=== PATIENT | female | born 1945 | race Caucasian/White ===

== ENCOUNTER → 2023-06-07 10:18 | Outpatient (REF) | payer MEDICARE, OTHER, SELFPAY ==
[2023-06-07 11:06] VITALS: BP 154/76; BP_SYST 84
== END ==
LOC: RADI 10:18
PROVIDERS: ATTENDING PHYSICIAN Surgery; FAMILY PHYSICIAN Nurse Practitioner
DX: Z46.2 Encounter for fitting and adjustment of other devices related to nervous system and special senses (principal); K57.20 Diverticulitis of large intestine with perforation and abscess without bleeding
CPT/HCPCS: 49424; 76080

== ENCOUNTER → 2023-07-24 13:33 | Outpatient (REF) | payer MEDICARE, OTHER, SELFPAY | LOC: HWWDC 13:33 | PROVIDERS: ATTENDING PHYSICIAN Nurse Practitioner | DX: Z12.31 Encounter for screening mammogram for malignant neoplasm of breast (principal) | CPT/HCPCS: 77063; 77067 ==

== ENCOUNTER → 2023-08-06 10:10 | Outpatient (REF) | payer MEDICARE, OTHER, SELFPAY | LOC: WDC 10:10 | PROVIDERS: ATTENDING PHYSICIAN Nurse Practitioner | DX: R92.8 Other abnormal and inconclusive findings on diagnostic imaging of breast (principal) | CPT/HCPCS: 77065 ==

== ENCOUNTER → 2023-08-16 06:30 | Outpatient (REF) | payer MEDICARE, OTHER, SELFPAY ==
--- NOTE | 2023-08-16 09:28 | OID.BR.INTR ---
[facility]igator - Initial
- -
Date of Contact: 08/16/23
Met with patient. Patient given written information on navigator services available at [facility]. Will follow up as needed per protocol.
== END ==
LOC: WDC 06:30
PROVIDERS: ATTENDING PHYSICIAN Nurse Practitioner
DX: R92.1 Mammographic calcification found on diagnostic imaging of breast (principal); R92.8 Other abnormal and inconclusive findings on diagnostic imaging of breast
CPT/HCPCS: 88305; 19081; 76098; A4648

== ENCOUNTER → 2023-08-16 13:54 | Outpatient (REF) | payer OTHER, SELFPAY ==
[2023-08-16 15:35] LABS: HIV Combo Negative (Negative)
[2023-08-16 16:01] LABS: Hepatitis B Surface Antigen Negative (Negative)
[2023-08-16 16:19] LABS: Hepatitis C Antibody Negative (Negative)
== END ==
LOC: OHS 13:54
PROVIDERS: ATTENDING PHYSICIAN Nurse Practitioner Family
DX: Z57.8 Occupational exposure to other risk factors (principal)
CPT/HCPCS: 36415; 86803; 87340; 87389

== ENCOUNTER → 2023-10-08 14:17 | Outpatient (REF) | payer MEDICARE, OTHER, SELFPAY | LOC: HWRAD 14:17 | PROVIDERS: ATTENDING PHYSICIAN Nurse Practitioner | DX: J40 Bronchitis, not specified as acute or chronic (principal) | CPT/HCPCS: 71046 ==

== ENCOUNTER 2023-12-18 17:30 | Inpatient (IN) | payer MEDICARE, OTHER, SELFPAY ==
[2023-12-18] VITALS (8 sets, daily range): BP systolic 110–148; BP diastolic 50–88; BMI 28.5; BMI 28.6
[2023-12-18 12:49] LABS: % Basophils 0.7 % (0-2); % Eosinophils 0.5 % (0-6); % Immature Granulocytes 0.4 % (0-0.5); % Lymphocytes 10.6 % (20.5-51.1); % Monocytes 13.4 % (1.7-9.3); % Neutrophils 74.4 % (42.2-75.2); Absolute Basophils 0.1 10^3/uL (0-0.2); Absolute Eosinophils 0.1 10^3/uL (0-0.7); Absolute Immature Granulocytes 0.1 10^3/uL (0-0.05); Absolute Lymphocytes 1.4 10^3/uL (1.2-3.4); Absolute Monocytes 1.8 10^3/uL (0.1-0.6); Absolute Neutrophils 9.9 10^3/uL (1.4-6.5); Hematocrit 41.4 % (37.0-47.0); Hemoglobin 14.3 g/dL (12.0-16.0); Mean Corp Hgb Conc. 34.5 g/dL (33.0-37.0); Mean Corpuscular Hgb 27.3 pg (27.0-31.0); Mean Corpuscular Volume 79.2 fL (81.0-99.0); Mean Platelet Volume 9.6 fL (7.4-10.4); Nucleated Red Blood Cells % 0 %; Platelet Count 399 10^3/uL (130-400); Red Blood Cell Count 5.23 10^6/uL (4.20-5.40); Red Cell Dist. Width 14.1 % (11.5-14.5); White Blood Cell Count 13.4 10^3/uL (4.8-10.8)
[2023-12-18 13:07] LABS: ALT (SGPT) 13 U/L (0-35); AST (SGOT) 21 U/L (14-36); Albumin 3.9 g/dl (3.5-5.0); Alkaline Phosphatase 102 U/L (38-126); Blood Urea Nitrogen 18 mg/dl (7-17); Calcium 10.3 mg/dl (8.4-10.2); Carbon Dioxide 24 mmol/L (22-30); Chloride 105 mmol/L (98-107); Glucose 130 mg/dl (70-99); Sodium 137 mmol/L (135-145); Total Bilirubin 0.8 mg/dl (0.2-1.3); Total Protein 6.6 g/dl (6.3-8.2); eGFR 57.31
[2023-12-18] MEDS: NSS 1000 IV ×2 (15:14→20:45)
--- NOTE | 2023-12-18 15:14 | ED.GENMED ---
History of Present Illness
General
Chief Complaint: Abdominal Symptoms
Source: patient and records
Exam Limitations: none
Time Seen by Provider: 12/18/23 14:27
Nursing documentation reviewed up to this point in time: agreed with
History of Present Illness
History of Present Illness:
Patient is a 78-year-old female Who presents to the emergency department complaining of severe lower abdominal pain that started 4 days ago. Back in May patient had sigmoid diverticulitis with large pelvic abscess. Approximately 10 days ago
the patient had some diarrhea and schedule an appointment with her physician who saw her 5 days ago and then the next day the patient started with pain. Patient talked to her doctor and took Augmentin starting 2 days ago. Patient also had been
constipated since having diarrhea earlier. Patient did take a Dulcolax and 2 nights ago had a normal bowel movement. Last night the pain increased and this morning the patient had 2 bowel movements that were soft but had bright red blood. Patient
then had liquidy stools. Patient's had a low-grade temp of 99.5 for the last week but today it was 100.4. During the night the patient had dry heaves and was retching. Patient denies chest pain, shortness of breath or palpitations. Patient
denies any symptoms. Patient admits to decreased appetite.
Past History
Past History
ED Past Medical History: GERD, HTN, Hypothyroidism and Other (PNA, Aortic stenosis, Hiatal hernia)
ED Past Surgical History: Gynecological (Hysterectomy), Orthopedic (left hip replacement, right rotator cuff repair, left hammer toe ), Tonsilectomy and Other (cataracts)
Social History
Tobacco: Former smoker
Alcohol: None
Drug: None
Personal:
Living: alone
Family History
Family History: Negative Hypertension or CAD
Review of Systems
Review of Systems
All Other Systems: ROS reviewed and negative except as documented in HPI and ROS
Constitutional: Reports fever and fatigue
EENT: Reports no symptoms
Respiratory: Reports no symptoms
Cardiac: Reports no symptoms
ABD/GI: Reports abdominal pain, diarrhea, bloody stools, anorexia and other (dry heaves)
: Reports no symptoms
Musculoskeletal: Reports no symptoms
Skin: Reports no symptoms
Neurological: Reports no symptoms
Hematologic/Lymphatic: Reports no symptoms
Phy Exam
Physical Exam
Physical Exam:
Physical Exam
General: mild to moderate distress, alert and appropriate, well nourished, dry mucous membranes
HENT: Normocephalic, supple with no lymphadenopathy, no thyromegaly
Eyes: Clear sclera, conjuctiva without injection
Heart: Regular rhythm and rate. No S3, S4. Grade 2/6 holosystolic murmur heard best at the base. No NVD
Lungs: No respiratory distress, no stridor, lung sounds clear and equal bilaterally
Abdomen: Soft, moderate diffuse lower abdominal tenderness greatest in the suprapubic and left lower quadrant regions with mild guarding but no rebound, no organomegaly, no CVA tenderness, BS good
Neuro: Alert and oriented x 3, CN II - XII intact, no motor focality, no cerebellar dysfunction
Skin: no rash
Psychiatric: well kept. interactive and cooperative
Extremities: No edema, cyanosis, tenderness, Good and equal peripheral pulses.
Course
Orders/Labs/Results
Orders:
Orders
12/18/23 12:31
EKG [Electrocardiogram (*1)] Urgent
Reason for Study: Tachycardia
12/18/23 12:32
EKG- Treatment ONCE
12/18/23 12:36
Complete Blood Count/With Diff Urgent
Comprehensive Metabolic Panel Urgent
12/18/23 14:41
CT Abd/Pel (IV only)-DH only Urgent
Comment:
Reason For Exam: ;ower gi bleed and lower tender
0.9% Sodium Chloride 1000 ml [Nss] 1,000 ml IV BOLUS
Ondansetron Injectable [Zofran] 4 mg IV NOW STA
12/18/23 Dinner
Clear Liquid
At Your Request: Full Participation
Does patient need a safe tray?: No
12/18/23 16:19
LevoFLOXacin 500 MG/100 ML [Levaquin] 500 mg in 100 ml IV NOW
MetroNIDAZOLE 500 MG/100 ML [Flagyl 500 mg] 100 ml IV NOW
12/18/23 17:23
Admit/Transfer Patient As Directed
Co-Sign Provider:
Level of Care: Inpatient admission
Assign to:: Medical/Surgical
Physician / Group: gautam
Diagnosis: diverticulitis
Reason for Hospitalization: diverticulitis
Expected length of stay greater than two midnights?: Yes
ELOS- Estimated Length of Stay in days: 2
I certify the patient meets the requirements for IP care: Yes
PRN Pain Medication Management As Directed
May give lesser potent ordered pain med per pt: Yes
preference::
Protocol:: Medication orders for pain may be administered in a
manner that supports deferring to patient preference
when the pt is:
- Requesting an ordered lesser potent pain medication.
Least to most potent pain medications are defined
as: acetaminophen < NSAID < tramadol < opioids
(morphine, oxycodone, hydromorphone).
- Requesting a lesser dose of the same medication IF
ORDERED.
- Requesting a less intrusive route of administration
if both routes are prescribed by the provider (PO <
IV).
12/18/23 17:24
Code Status As Directed
Resuscitation Status: Full Code
12/18/23 19:11
Acetaminophen [Tylenol] 650 mg PO Q4HPRN PRN
Albuterol [ProAIR HFA INHALER] 2 puff INH R Q6HPRN PRN
HYDROmorphone [Dilaudid] 0.5 mg IV Q4HPRN PRN
Ondansetron Injectable [Zofran] 4 mg IV Q6HPRN PRN
12/18/23 19:11
Activity As Directed
Activity Level: As Tolerated
Pneumatic Compression Sleeves As Directed
Type: Knee high
Vital Signs As Directed
Frequency: Per unit guidelines
DX Deep Vein Thrombosis Video Routine
12/18/23 19:30
0.9% Sodium Chloride 1000 ml [Nss] 1,000 ml IV 80 mls/hr
12/18/23 20:00
Piperacillin/Tazo 3.375 Gram [Zosyn] 3.375 gram in 50 ml IV Q6H
12/19/23 06:00
Complete Blood Count/With Diff IN AM
Comprehensive Metabolic Panel IN AM
Levothyroxine [Synthroid] 100 mcg PO DAILY@0600
12/19/23 08:00
calcium citrate-vitamin D3 2 tablet PO DAILY
12/19/23 11:00
Pantoprazole [Protonix] 20 mg PO DAILY@1100
12/19/23 12:00
Metoprolol Xl [Toprol Xl] 25 mg PO NOON
wgqwesaa-gpxjtja-btfn-lutein 1 tablet PO NOON
Abnormal Lab Results
12/18/23
12:36
WBC 13.4 H 10^3/uL
(4.8-10.8)
MCV 79.2 L fL
(81.0-99.0)
Abs Immat Gran (auto) 0.1 H 10^3/uL
(0-0.05)
Absolute Neuts (auto) 9.9 H 10^3/uL
(1.4-6.5)
Absolute Monos (auto) 1.8 H 10^3/uL
(0.1-0.6)
Lymphocytes % 10.6 L %
(20.5-51.1)
Monocytes % 13.4 H %
(1.7-9.3)
BUN 18 H mg/dl
(7-17)
Glucose 130 H mg/dl
(70-99)
Calcium 10.3 H mg/dl
(8.4-10.2)
12/18/23 12:36
12/18/23 12:36
Vital Signs
Initial and Last Documented VS:
Initial Vital Signs
Temp Pulse Resp BP Pulse Ox
99.4 F 117 18 110/88 94
12/18/23 12:26 12/18/23 12:26 12/18/23 12:26 12/18/23 12:26 12/18/23 12:26
Last Documented Vital Signs
Temp Pulse Resp BP Pulse Ox
98.0 F 107 18 148/76 94
12/18/23 19:10 12/18/23 19:10 12/18/23 19:10 12/18/23 19:10 12/18/23 19:10
*Radiology
Radiology exam reviewed: radiology read reviewed (Diverticulitis)
*EKG
Interpreted by ED Provider?: Yes
EKG Intrepretation Date: 12/18/23
EKG Intrepretation Time: 15:32
Interpretation: abnormal
Comparison EKG: no changes
Heart Rate: 110
Rate: tachycardiac
Rhythm: sinus
[place]: normal axis
Interval: normal interval
QRS Pattern: normal QRS
Ischemia: no ischemia
*Cook Chief Interpretation
Rate: tachycardiac
Interpretation: abnormal
Heart Rate: 110
Rhythm: sinus
*Critical Care Note
Total Time (30-74mins, 75-104mins- exclusive of procedures): Not Applicable
Update Note
Update Note:
Patient has been on outpatient antibiotics In addition has had rectal bleeding and given the patient's age, past medical history and CT findings as well as mildly elevated white count patient will be admitted.
ED Attending Note
-
Portions of this chart may have been created with voice recognition software.� Occasional wrong word or��sound alike� substitutions may have occurred due to the inherent limitations of voice recognition software.
Discharge Plan
Departure
Patient Disposition: Admit
Date of Disposition: 12/18/23
Time of Disposition: 16:16
Admit to: Med/Surg
Admit to doctor: Hospitalist
Presentation/result/management discussed w/ accepting MD/DO: Hospitalist
Patient with high blood pressure during this ER visit?: No
Condition: Fair
Discharge Problem:
Acute diverticulitis of intestine, Rectal bleeding
Interventions
Interventions:
*Risk Screen - Suicide Last Done: 12/18/23 12:26
*General Assessment Last Done: 12/18/23 12:26
*Neglect/Abuse Screening Last Done: 12/18/23 12:26
ED- Fall Risk Assessment Last Done: 12/18/23 15:49
*ED COVID-19 Vaccine History Last Done: 12/18/23 12:26
*Nursing Disposition Last Done: 12/18/23 19:06
CW-Ifdckd-Weuvjxhqed Assessment Last Done: 12/18/23 15:49
Discharge Date and Time
Discharge Date/Time: 12/18/23 19:07
[2023-12-18] MEDS: FLAGYL 500 MG 100 IV (16:59)
[2023-12-18] MEDS: LEVAQUIN 100 IV (17:00)
--- NOTE | 2023-12-18 17:26 | HPS.HSE ---
Family Physician
-
Family Physician: ROBERT Kong
Chief Complaint
-
abdominal pain
History of Present Illness
38-year-old female past medical history of sigmoid diverticulitis with large pelvic abscess status post drainage, hypertension, hypothyroidism, polymyalgia rheumatica, GERD, former smoker, stress incontinence, presenting with abdominal pain.
In May patient had sigmoid diverticulitis with large pelvic abscess status post drainage.
9 days ago patient developed diarrhea and took Imodium. She subsequently did not have a bowel movement in several days and saw her primary care physician 5 days ago with complaints of low-grade fever. She was started on Augmentin 2 days later.
Since yesterday patient developed severe bilateral lower quadrant abdominal pain worse in the left lower quadrant with nausea and took a laxative due to lack of bowel movements today. Today she had 2 large bowel movements with bright red blood.
Afterwards she had some moderate diarrhea with resolution of the blood in the stool.
At this time her pain is actually quite improved with resolution of rectal bleeding and diarrhea.
Medical History
Past Medical History
Past Medical History: Reports Other (sigmoid diverticulitis with large pelvic abscess status post drainage, hypertension, hypothyroidism, polymyalgia rheumatica, GERD, former smoker, stress incontinence)
Past Surgical History: Reports Other (Gynecological (Hysterectomy), Orthopedic (left hip replacement, right rotator cuff repair, left hammer toe ), Tonsilectomy and Other (cataracts))
Social History
Tobacco: Former Smoker
Alcohol: None
Drug: None
Family History
Family History: Not pertinent
Allergies / Home Medications
Allergies reflects when Allergies were last updated in [facility].
Home Medications with original date entered in [facility]
Allergy/Medication List:
Allergies
Allergy/AdvReac Type Severity Reaction Status Date / Time
No Known Allergies Allergy Verified 05/16/23 15:39
Home Medications
levothyroxine 100 mcg tablet 100 mcg PO DAILY Thyroid 05/16/23
metoprolol succinate 25 mg tablet,extended release 24 hr 25 mg PO NOON Blood Pressure 05/16/23
pantoprazole 20 mg tablet,delayed release 20 mg PO DAILY@1100 Gastrointestinal Issue 05/16/23
albuterol sulfate 90 mcg/actuation aerosol inhaler 2 puff inhalation R Q6HPRN PRN sob 12/18/23
amoxicillin 875 mg-potassium clavulanate 125 mg tablet 1 tab PO BID 12/18/23
calcium citrate 315 mg-vitamin D3 5 mcg (200 unit) tablet 2 tab PO DAILY 12/18/23
dqumifse-dbdnhhv-yeab-lutein tablet 1 tab PO NOON 12/18/23
Review of Systems
-
History Source: Patient
A 12 point ROS was completed and negative except as noted: Yes
Constitutional: Reports No Symptoms
EENT: Reports No Symptoms
Respiratory: Reports No Symptoms
Cardiac: Reports No Symptoms
Abdomen/GI: Reports See HPI
: Reports No Symptoms
Musculoskeletal: Reports No Symptoms
Skin: Reports No Symptoms
Neurological: Reports No Symptoms
Endocrine: Reports No Symptoms
Hematologic/Lymphatic: Reports No Symptoms
Psych: Reports No Symptoms
Physical Exam
Vital Signs
Vital Signs
Temp Pulse Resp BP Pulse Ox
98.4 F 110 20 143/72 96
12/18/23 15:47 12/18/23 17:10 12/18/23 17:10 12/18/23 17:10 12/18/23 15:47
Physical Exam
General: Well Developed, Well Nourished and No Apparent Distress
HEENT: NormoCephalic, Moist mucous membranes and Atraumatic
Respiratory: Clear
Cardiac: S1/S2 and Regular Rhythm; No Murmur or Rub
GI: Soft, Non Distended, Normal Bowel Sounds and Tender (bilteral lower quadrants ); No Organomegaly
Rectal: Deferred by Provider
Musculoskeletal: No Clubbing, No Cyanosis and No Edema
Skin: No Rash
Neuro: Nonfocal/grossly intact
Laboratory Results
-
12/18/23 12:36
12/18/23 12:36
Laboratory Results
Total Bilirubin 0.8 mg/dl (0.2-1.3) 12/18/23 12:36
AST 21 U/L (14-36) 12/18/23 12:36
ALT 13 U/L (0-35) 12/18/23 12:36
Alkaline Phosphatase 102 U/L (38-126) 12/18/23 12:36
Data Reviewed
-
Lab Data: Labs Reviewed by me
Old Records: Reviewed
Impression/Plan
-
IMPRESSION:
PLAN:
# Sepsis (leukocytosis, tachycardia) secondary to acute diverticulitis
# History of sigmoid diverticulitis with large pelvic abscess status post drainage in May
-CT abdomen pelvis shows sigmoid diverticulosis, some thickening of the wall of the proximal sigmoid colon with mild stranding
-N.p.o.
-IV fluids
-Zosyn
-Rectal bleeding likely due to colonic wall irritation from laxative and now resolved
-Clear liquids, advance as tolerated
Essential hypertension
-Continue metoprolol
Hypothyroidism
-Continue levothyroxine
Polymyalgia rheumatica
GERD
-Continue Protonix
Stress incontinence
Uterosacral complexity with ligament suspension 2022
Former smoker
DNR/DNI
DVT prophylaxis�SCDs
Clear liquid diet
[2023-12-18] MEDS: ZOSYN 50 IV (20:45)
--- NOTE | 2023-12-19 00:04 | PTCARENOTE ---
Patient arrived on unit @ 1900, able to walk into bathroom without aid. Patient's daughter at bedside. Patient was able to participate in admission, good historian.
[2023-12-19] MEDS: ZOSYN 50 IV ×4 (02:17→19:40)
[2023-12-19] MEDS: SYNTHROID 100 MCG PO (06:31)
[2023-12-19 07:25] VITALS: BP 133/78
--- NOTE | 2023-12-19 07:34 | W.PN.HOSP.TC ---
Today's Communication/Plan
-
Antibiotics. Advance diet as tolerated. CRS consult
Assessment / Plan
Assessment / Plan
Physical exam:
General: Acutely ill
HEENT: Normocephalic, Atraumatic and Moist Mucous Membranes
Respiratory: Clear to Auscultation; Negative Wheezes, Rales or Rhonchi
Cardiac: Regular Rhythm and S1/S2
GI: Soft, Tender less than admission and Nondistended
Musculoskeletal: No Clubbing, No Cyanosis and No Edema
Neuro: Awake, Alert and Oriented, no gross neuro-deficit
Psych: Calm
A/P:
# Sepsis (leukocytosis, tachycardia despite being on beta-blockers) secondary to acute diverticulitis
# History of sigmoid diverticulitis with large pelvic abscess status post drainage in May
-CT abdomen pelvis shows sigmoid diverticulosis, some thickening of the wall of the proximal sigmoid colon with mild stranding
-Clear liquid diet currently and can advance to full liquid diet today
-IV fluids
-Zosyn
-Rectal bleeding likely due to colonic wall irritation from laxative and now resolved
-WBC 13.4---> 8.2
-Colorectal surgery consult
Essential hypertension
-Continue metoprolol
Hypothyroidism
-Continue levothyroxine
Polymyalgia rheumatica
GERD
-Continue Protonix
Stress incontinence
Uterosacral complexity with ligament suspension 2022
Former smoker
DNR/DNI
DVT prophylaxis�SCDs
Anticipated Discharge: 24 - 48 hours
Subjective/Interval History
-
Date of Service: December 19, 2023
Patient feels better today, less abdominal pain. No nausea or vomiting
Objective Data
-
Labs:
Laboratory Results
12/19/23
07:03
WBC Pending
Hgb Pending
Hct Pending
Plt Count Pending
Sodium Pending
Potassium Pending
Chloride Pending
Carbon Dioxide Pending
BUN Pending
Creatinine Pending
Glucose Pending
Calcium Pending
Total Bilirubin Pending
AST Pending
ALT Pending
Alkaline Phosphatase Pending
Vital Signs:
Vital Signs
Temp Pulse Resp BP Pulse Ox
98.1 F 95 18 118/80 94
12/18/23 23:00 12/18/23 23:00 12/18/23 23:00 12/18/23 23:00 12/18/23 23:00
I&O
12/18/23 12/19/23 12/20/23
06:59 06:59 06:59
Intake Total 1779
Balance 1779
[2023-12-19 08:15] LABS: % Basophils 1.2 % (0-2); % Eosinophils 5.7 % (0-6); % Immature Granulocytes 0.4 % (0-0.5); % Lymphocytes 19.2 % (20.5-51.1); % Neutrophils 64.8 % (42.2-75.2); Absolute Basophils 0.1 10^3/uL (0-0.2); Absolute Eosinophils 0.4 10^3/uL (0-0.7); Absolute Lymphocytes 1.6 10^3/uL (1.2-3.4); Absolute Monocytes 0.7 10^3/uL (0.1-0.6); Absolute Neutrophils 5.3 10^3/uL (1.4-6.5); Hematocrit 35.5 % (37.0-47.0); Hemoglobin 12.2 g/dL (12.0-16.0); Mean Corp Hgb Conc. 34.6 g/dL (33.0-37.0); Mean Corpuscular Hgb 27.6 pg (27.0-31.0); Mean Corpuscular Volume 79.8 fL (81.0-99.0); Nucleated Red Blood Cells % 0 %; Red Blood Cell Count 4.56 10^6/uL (4.20-5.40); Red Cell Dist. Width 14.1 % (11.5-14.5); White Blood Cell Count 8.2 10^3/uL (4.8-10.8)
[2023-12-19 08:39] LABS: ALT (SGPT) 11 U/L (0-35); AST (SGOT) 22 U/L (14-36); Albumin 3.3 g/dl (3.5-5.0); Alkaline Phosphatase 81 U/L (38-126); Blood Urea Nitrogen 13 mg/dl (7-17); Calcium 9.3 mg/dl (8.4-10.2); Carbon Dioxide 23 mmol/L (22-30); Chloride 109 mmol/L (98-107); Estimated Creatinine Clearance 53 ml/min; Glucose 93 mg/dl (70-99); Sodium 140 mmol/L (135-145); Total Bilirubin 0.9 mg/dl (0.2-1.3); Total Protein 5.9 g/dl (6.3-8.2); eGFR > 60.00
[2023-12-19] MEDS: NSS 1000 IV ×2 (09:25→21:40)
[2023-12-19] MEDS: TOPROL XL 25 MG PO (11:25)
[2023-12-19] MEDS: PROTONIX 20 MG PO (11:25)
[2023-12-19 15:44] VITALS: BP 143/71
--- NOTE | 2023-12-19 16:28 | CON.CRS ---
Consultation
-
Date/Time Consultation Requested: 12/19/23 @ 7:38
Date/Time Consultation Performed: 12/19/23 @ 9:15
Requesting Provider: Marco Antonio Kim MD
Performing Provider: Jeremy Bowden MD
Reason for Consultation: Recurrent sigmoid diverticulitis
Medical History
-
Chief Complaint: Abdominal pain and constipation
History of Present Illness:
78-year-old female known to us after being admitted in May of this year with sigmoid diverticulitis and a large pelvic abscess. The abscess was drained percutaneously and was subsequently removed. About 9 days ago she had some diarrhea and
took Imodium. She then became constipated and for the past 4 days she has had lower abdominal discomfort and constipation. She took a Duca locks and did move her bowels but there was some blood described as bright red. Her subsequent stools were
then loose and she had a low-grade temperature. She was placed empirically on oral antibiotics but the pain persisted prompting her to come to the ED. Last night she did have some dry heaves.
Past Medical History
Past Medical History: Diverticulitis (With abscess May 2023), GERD, HTN, Hypothyroidism and Other (Polymyalgia rheumatica)
Past Surgical History: Gynecological (Hysterectomy), Orthopedic (Left hip replacement, right rotator cuff repair, left hammertoe), Tonsilectomy and Other (Cataracts)
Social History
Tobacco: Former Smoker
Alcohol: None
Family History
Family History: Reviewed & Not Pertinent and Reviewed & Noncontributory
Allergies / Home Medications
Allergy/AdvReac Type Severity Reaction Status Date / Time
No Known Allergies Allergy Verified 05/16/23 15:39
�Medication �Instructions �Recorded �Confirmed �Type
levothyroxine 100 mcg tablet 100 mcg PO DAILY Thyroid 05/16/23 12/18/23 History
metoprolol succinate 25 mg 25 mg PO NOON Blood Pressure 05/16/23 12/18/23 History
tablet,extended release 24 hr
pantoprazole 20 mg tablet,delayed 20 mg PO DAILY@1100 05/16/23 12/18/23 History
release Gastrointestinal Issue
albuterol sulfate 90 mcg/actuation 2 puff inhalation R Q6HPRN PRN sob 12/18/23 12/18/23 History
aerosol inhaler
amoxicillin 875 mg-potassium 1 tab PO BID 12/18/23 12/18/23 History
clavulanate 125 mg tablet
calcium citrate 315 mg-vitamin D3 2 tab PO DAILY 12/18/23 12/18/23 History
5 mcg (200 unit) tablet
shfwradg-yklofrw-npyc-lutein tablet 1 tab PO NOON 12/18/23 12/18/23 History
Review of Systems
-
History Source: Patient
All other systems: Negative unless noted
A 10 point review of systems was completed, and was negative except as per HPI.
Physical Exam
Vital Signs
Temp 97.9 F 12/19/23 15:44
Pulse 86 12/19/23 15:44
Resp Rate 18 12/19/23 15:44
Blood pressure 143/71 12/19/23 15:44
SaO2 97 12/19/23 15:44
12/18/23 12/19/23 12/20/23
06:59 06:59 06:59
Actual Weight 70.817 kg
Body Mass Index (BMI) 28.6
Lab Results / Allergies
12/19/23 07:03
12/19/23 07:03
WBC 8.2 10^3/uL (4.8-10.8) 12/19/23 07:03
Hgb 12.2 g/dL (12.0-16.0) 12/19/23 07:03
Hct 35.5 % (37.0-47.0) L 12/19/23 07:03
Plt Count 10^3/uL (130-400) 12/19/23 07:03
Abs Immat Gran (auto) 0.0 10^3/uL (0-0.05) 12/19/23 07:03
Neutrophils % 64.8 % (42.2-75.2) 12/19/23 07:03
Allergy/AdvReac Type Severity Reaction Status Date / Time
No Known Allergies Allergy Verified 05/16/23 15:39
Physical Exam
General: Well Developed, Well Nourished, No Apparent Distress and Comfortable
HEENT: Anicteric
GI: Soft, Non Tender and Non Distended
Musculoskeletal: No Edema
Neuro: Awake and Alert
Data Reviewed
-
CT Scan: Image Personally Visualized and interpreted, Report Reviewed by me and Discussed with Patient
Labs: Labs Reviewed by me and Discussed with Patient
Assessment / Plan
-
Questionable mild diverticulitis of the proximal sigmoid colon. There is no abscess or free air.
Since admission she states he feels much better. Her white count has normalized and she is afebrile.
Her abdominal exam is benign.
Will advance to full liquids and continue antibiotics.
There is no indication for surgery at this time.
[2023-12-19 23:20] VITALS: BP 158/76
[2023-12-20] MEDS: ZOSYN 50 IV ×2 (01:03→09:10)
[2023-12-20] MEDS: SYNTHROID 100 MCG PO (03:51)
[2023-12-20 08:02] VITALS: BP 158/74
--- NOTE | 2023-12-20 08:27 | W.PN.HOSP.TC ---
Today's Communication/Plan
-
Discharge planning today
Assessment / Plan
Assessment / Plan
Physical exam:
General: Well Developed, Well Nourished and No Apparent Distress
HEENT: Normocephalic, Atraumatic and Moist Mucous Membranes
Respiratory: Clear to Auscultation; Negative Wheezes, Rales or Rhonchi
Cardiac: Regular Rhythm and S1/S2
GI: Soft, Nontender and Nondistended
Musculoskeletal: No Clubbing, No Cyanosis and No Edema
Neuro: Awake, Alert and Oriented
Psych: Calm
A/P:
# Sepsis (leukocytosis, tachycardia despite being on beta-blockers) secondary to acute diverticulitis
# History of sigmoid diverticulitis with large pelvic abscess status post drainage in May
-CT abdomen pelvis shows sigmoid diverticulosis, some thickening of the wall of the proximal sigmoid colon with mild stranding
-Low residue diet today
-Stop IV fluids
-Zosyn change to Augmentin
-Rectal bleeding likely due to colonic wall irritation from laxative and now resolved
-WBC 13.4---> 8.2--> 6.4
-Colorectal surgery consult appreciated
Essential hypertension
-Continue metoprolol
Hypothyroidism
-Continue levothyroxine
Polymyalgia rheumatica
GERD
-Continue Protonix
Stress incontinence
Uterosacral complexity with ligament suspension 2022
Former smoker
DNR/DNI
DVT prophylaxis�SCDs
Anticipated Discharge: Today
Subjective/Interval History
-
Date of Service: December 20, 2023
Patient denies abdominal pain nausea vomiting.
Objective Data
-
Labs:
Laboratory Results
12/20/23
08:25
WBC Pending
Hgb Pending
Hct Pending
Plt Count Pending
Sodium Pending
Potassium Pending
Chloride Pending
Carbon Dioxide Pending
BUN Pending
Creatinine Pending
Glucose Pending
Calcium Pending
Vital Signs:
Vital Signs
Temp Pulse Resp BP Pulse Ox
98.1 F 76 18 158/74 95
12/20/23 08:02 12/20/23 08:02 12/20/23 08:02 12/20/23 08:02 12/20/23 08:02
I&O
12/19/23 12/20/23 12/21/23
06:59 06:59 06:59
Intake Total 1779 / 0 2880 / 2880
Balance 1779 / 1779 2880 / 2880
[2023-12-20 08:55] LABS: Blood Urea Nitrogen 7 mg/dl (7-17); Calcium 9.1 mg/dl (8.4-10.2); Carbon Dioxide 25 mmol/L (22-30); Chloride 109 mmol/L (98-107); Estimated Creatinine Clearance 53 ml/min; Glucose 94 mg/dl (70-99); Potassium 3.7 mmol/L (3.5-5.1); Sodium 140 mmol/L (135-145); eGFR > 60.00
[2023-12-20 09:17] LABS: % Basophils 1.6 % (0-2); % Eosinophils 9.7 % (0-6); % Immature Granulocytes 0.8 % (0-0.5); % Lymphocytes 29.6 % (20.5-51.1); % Monocytes 9.1 % (1.7-9.3); % Neutrophils 49.2 % (42.2-75.2); Absolute Basophils 0.1 10^3/uL (0-0.2); Absolute Eosinophils 0.6 10^3/uL (0-0.7); Absolute Immature Granulocytes 0.1 10^3/uL (0-0.05); Absolute Lymphocytes 1.9 10^3/uL (1.2-3.4); Absolute Monocytes 0.6 10^3/uL (0.1-0.6); Absolute Neutrophils 3.1 10^3/uL (1.4-6.5); Hematocrit 35.8 % (37.0-47.0); Hemoglobin 11.9 g/dL (12.0-16.0); Mean Corp Hgb Conc. 33.2 g/dL (33.0-37.0); Mean Corpuscular Hgb 27.4 pg (27.0-31.0); Mean Corpuscular Volume 82.5 fL (81.0-99.0); Mean Platelet Volume 9.6 fL (7.4-10.4); Nucleated Red Blood Cells % 0 %; Platelet Count 302 10^3/uL (130-400); Red Blood Cell Count 4.34 10^6/uL (4.20-5.40); Red Cell Dist. Width 14.3 % (11.5-14.5); White Blood Cell Count 6.4 10^3/uL (4.8-10.8)
[2023-12-20] MEDS: PROTONIX 20 MG PO (10:09)
[2023-12-20] MEDS: NSS 1000 IV (10:10)
--- NOTE | 2023-12-20 11:47 | W.DCSUMMARY ---
Discharge Summary
Discharge Data
Date of Admission: 12/18/23
Date of Discharge: 12/20/23
-
Pending Results: No
Hospital Course
Patient is 78 years old female with history of hypertension, hypothyroidism, GERD, polymyalgia rheumatica, recurrent diverticulitis with a large pelvic abscess back in May status post percutaneously drained, came into the hospital with recurrent
abdominal pain and took some antibiotics as outpatient but continued to get worse associated with low-grade temperature and was diagnosed with recurrent diverticulitis. Patient was treated with IV antibiotics, pain control, fluids, and diet and
subsequently was advanced as tolerated. Colorectal surgery consulted. She did not require surgical intervention but will follow-up as outpatient with colorectal. Patient did well the rest of hospital stay. Her WBC trended down to normal. Her
abdominal pain subsided. She was able to tolerate her diet without any problems. She is hemodynamically stable. Colorectal surgery cleared for discharge. She is going to be discharged in stable condition today.
Discharge duration: 35 minutes
Discharge Plan
-
Patient Disposition: Home (Routine Discharge)
Discharge Diagnosis/Procedures: Acute diverticulitis. Sepsis.
Diet: Low Residue
Activity: As tolerated
Blood Work: Please PCP to order CBC, BMP within 1 week
Referrals:
Steven Wise MD [Active] - in two to four weeks
Natividad David CRNP [Family Provider] - in less than 1 week
Prescriptions:
New
amoxicillin-pot clavulanate 875-125 mg Tablet
1 tab PO Q12 10 Days Qty: 20 0RF
Continued
pantoprazole 20 mg Tablet,Delayed Release (Dr/Ec)
20 mg PO DAILY@1100
levothyroxine 100 mcg Tablet
100 mcg PO DAILY
metoprolol succinate 25 mg Tablet Extended Release 24 Hr
25 mg PO NOON
albuterol sulfate 90 mcg/actuation Hfa Aerosol Inhaler
2 puff INHALATION R Q6HPRN PRN (Reason: sob)
amoxicillin-pot clavulanate 875-125 mg Tablet
1 tab PO BID
Patient Comments:
12/18/23: to take for 10 days, filled on 12/17/23.
zultbfgc-upukscc-napd-lutein Tablet
1 tab PO NOON
calcium citrate-vitamin D3 315 mg-5 mcg (200 unit) Tablet
2 tab PO DAILY
Discharge Orders:
Discharge Patient (As Directed); Ordered 12/20/23
Ordered By: Marco Antonio Kim
Discharge Date and Time
Discharge Date/Time: 12/20/23 14:14
Print Language: SLOVENIAN
[2023-12-20] MEDS: AUGMENTIN 875 MG/125 MG 1 TABLET PO (11:49)
[2023-12-20] MEDS: TOPROL XL 25 MG PO (11:49)
--- NOTE | 2023-12-20 12:01 | W.PN.CRS1 ---
Today's Communication / Plan
-
Low residue diet
If tolerated may be discharged from our perspective
Will sign off, please contact them for further issues arise
Assessment/Plan
-
Questionable mild diverticulitis of the proximal sigmoid colon. There is no abscess or free air.
-WBC has normalized. Vitals are normal.
-Advance diet to low residue diet.
-There is no indication for surgery at this time.
-Okay for discharge later if she is tolerating a low residue diet. We will sign off. Please contact us if further issues arise. Follow-up in the office in [address] Wise in the office.
Subjective Data
Subjective Data
Date of Service: December 20, 2023
P patient states she has no nausea or vomiting. Her pain has resolved. She is tolerating a full liquid diet. She is hungry. She denies nausea or vomiting.
Objective Data
-
Vital Signs
Temp Pulse Resp BP Pulse Ox
98.1 F 102 18 149/73 95
12/20/23 08:02 12/20/23 11:49 12/20/23 08:02 12/20/23 11:49 12/20/23 08:02
Intake & Output
12/19/23 12/20/23 12/21/23
06:59 06:59 06:59
Intake Total 1780 / 1780 2880 / 2880
Balance 1780 / 1780 2880 / 2880
Intake:
Oral fluids 720 / 720 1800 / 1800
IV fluids (Total) 960 / 960 880 / 880
IV piggybacks 100 / 100 200 / 200
Other:
Number of approximated MODERATE 1 2
amounts of urine
Number of approximated LARGE 1
amounts of urine
Lab Results
12/20/23 08:25
12/20/23 08:25
Physical Exam
-
General: No Acute Distress and AOx3
Abdomen: Soft, Non Distended and Non Tender
Skin: Warm and Dry
--- NOTE | 2023-12-20 12:01 | CM ---
CM following re: discharge planning.
Reviewed pt's chart, met with pt. Gris lives in an apartment at [facility] in [place]. She is (I) amb and adls, participates in activities at [employer], and has friends who live at the same apartment complex.
Discharge order is noted. Pt is aware, expressed her agreement with discharge. IMM reviewed, placed in chart, pt has a copy.
Gris has requested to speak with a continuous mining machine operator regarding the diet she is supposed to follow.
PCP: Natividad David
Pharmacy: [facility] on [facility] [address] [facility] in [place], [place]
D/C plan: home with no needs; She has friends/neighbors who will be driving her home.
== END 2023-12-20 14:14 | disposition home or self-care (01) | DRG 871 ==
LOC: 4 EAST ACU 17:30
PROVIDERS: Emergency Medicine; ADMITTING PHYSICIAN Hospitalist; ATTENDING PHYSICIAN Hospitalist; CONSULT PHYSICIAN Surgery; EMERGENCY PHYSICIAN Emergency Medicine; FAMILY PHYSICIAN Nurse Practitioner
DX: A41.9 Sepsis, unspecified organism (principal); K57.33 Diverticulitis of large intestine without perforation or abscess with bleeding; I10 Essential (primary) hypertension; E03.9 Hypothyroidism, unspecified; K21.9 Gastro-esophageal reflux disease without esophagitis; M35.3 Polymyalgia rheumatica; Z87.891 Personal history of nicotine dependence
CPT/HCPCS: 74177; 80048; 80053; 85025; 93005; 96361; 96365; 96367; 96375; 99285; Q9967

== ENCOUNTER → 2023-12-25 13:01 | Outpatient (REF) | payer MEDICARE, OTHER, SELFPAY ==
[2023-12-25 16:12] LABS: % Basophils 1.8 % (0-2); % Eosinophils 6.8 % (0-6); % Immature Granulocytes 1.5 % (0-0.5); % Lymphocytes 26.5 % (20.5-51.1); % Monocytes 8.7 % (1.7-9.3); % Neutrophils 54.7 % (42.2-75.2); Absolute Basophils 0.2 10^3/uL (0-0.2); Absolute Eosinophils 0.6 10^3/uL (0-0.7); Absolute Immature Granulocytes 0.1 10^3/uL (0-0.05); Absolute Lymphocytes 2.2 10^3/uL (1.2-3.4); Absolute Monocytes 0.7 10^3/uL (0.1-0.6); Absolute Neutrophils 4.5 10^3/uL (1.4-6.5); Hematocrit 38.6 % (37.0-47.0); Hemoglobin 12.8 g/dL (12.0-16.0); Mean Corp Hgb Conc. 33.2 g/dL (33.0-37.0); Mean Corpuscular Hgb 27.1 pg (27.0-31.0); Mean Corpuscular Volume 81.8 fL (81.0-99.0); Mean Platelet Volume 10.2 fL (7.4-10.4); Nucleated Red Blood Cells % 0 %; Platelet Count 431 10^3/uL (130-400); Red Blood Cell Count 4.72 10^6/uL (4.20-5.40); Red Cell Dist. Width 14.4 % (11.5-14.5); White Blood Cell Count 8.3 10^3/uL (4.8-10.8)
[2023-12-25 16:21] LABS: ALT (SGPT) 14 U/L (0-35); AST (SGOT) 25 U/L (14-36); Albumin 3.8 g/dl (3.5-5.0); Alkaline Phosphatase 77 U/L (38-126); Blood Urea Nitrogen 15 mg/dl (7-17); Calcium 10.2 mg/dl (8.4-10.2); Carbon Dioxide 31 mmol/L (22-30); Chloride 102 mmol/L (98-107); Glucose 89 mg/dl (70-99); Potassium 4.3 mmol/L (3.5-5.1); Sodium 137 mmol/L (135-145); Total Bilirubin 0.5 mg/dl (0.2-1.3); Total Protein 6.4 g/dl (6.3-8.2); eGFR > 60.00
[2023-12-25 16:54] LABS: TSH 0.13 uIU/ml (0.47-4.68)
== END ==
LOC: HWLAB 13:01
PROVIDERS: ATTENDING PHYSICIAN Nurse Practitioner
DX: E03.9 Hypothyroidism, unspecified (principal); I10 Essential (primary) hypertension
CPT/HCPCS: 36415; 80053; 84443; 85025

== ENCOUNTER → 2023-12-26 09:16 | Outpatient (REF) | payer MEDICARE, OTHER, SELFPAY ==
[2023-12-26 11:48] LABS: HDL Cholesterol 46 mg/dl; LDL Cholesterol, Calculated 126 mg/dl; Total Cholesterol 216 mg/dl (50-199); Triglyceride 222 mg/dl (10-149); Very Low Density Lipoprotein 44 mg/dl (0-30)
== END ==
LOC: HWLAB 09:16
PROVIDERS: ATTENDING PHYSICIAN Internal Medicine Cardiovascular Disease; FAMILY PHYSICIAN Nurse Practitioner
DX: I35.0 Nonrheumatic aortic (valve) stenosis (principal); I10 Essential (primary) hypertension
CPT/HCPCS: 36415; 80061

== ENCOUNTER → 2024-01-17 10:04 | Outpatient (REF) | payer MEDICARE, OTHER, SELFPAY ==
[2024-01-17 11:29] LABS: Platelet Count 286 10^3/uL (130-400)
[2024-01-17 12:12] LABS: TSH 0.07 uIU/ml (0.47-4.68)
== END ==
LOC: HWLAB 10:04
PROVIDERS: ATTENDING PHYSICIAN Internal Medicine Critical Care Medicine; FAMILY PHYSICIAN Nurse Practitioner; REFERRING PHYSICIAN Internal Medicine Rheumatology
DX: E03.9 Hypothyroidism, unspecified (principal); D75.839 Thrombocytosis, unspecified; J98.11 Atelectasis; J41.8 Mixed simple and mucopurulent chronic bronchitis; M81.0 Age-related osteoporosis without current pathological fracture
CPT/HCPCS: 36415; 71046; 84443; 85049

== ENCOUNTER → 2024-02-03 09:28 | Outpatient (REF) | payer MEDICARE, OTHER, SELFPAY ==
[2024-02-03 14:11] LABS: TSH 0.19 uIU/ml (0.47-4.68)
== END ==
LOC: HWLAB 09:28
PROVIDERS: ATTENDING PHYSICIAN Nurse Practitioner
DX: E03.9 Hypothyroidism, unspecified (principal)
CPT/HCPCS: 36415; 84443

== ENCOUNTER → 2024-03-30 09:54 | Outpatient (REF) | payer MEDICARE, OTHER, SELFPAY ==
[2024-03-30 12:36] LABS: TSH 0.84 uIU/ml (0.47-4.68)
== END ==
LOC: HWLAB 09:54
PROVIDERS: ATTENDING PHYSICIAN Internal Medicine; REFERRING PHYSICIAN Internal Medicine Rheumatology
DX: E03.9 Hypothyroidism, unspecified (principal)
CPT/HCPCS: 36415; 84443

== ENCOUNTER → 2024-07-06 10:43 | Outpatient (REF) | payer MEDICARE, OTHER, SELFPAY ==
[2024-07-06 15:42] LABS: ALT (SGPT) 15 U/L (0-35); AST (SGOT) 27 U/L (14-36); Albumin 4.3 g/dl (3.5-5.0); Alkaline Phosphatase 83 U/L (38-126); Blood Urea Nitrogen 20 mg/dl (7-17); Calcium 10.4 mg/dl (8.4-10.2); Carbon Dioxide 27 mmol/L (22-30); Chloride 103 mmol/L (98-107); Glucose 99 mg/dl (70-99); HDL Cholesterol 60 mg/dl; LDL Cholesterol, Calculated 151 mg/dl; Potassium 4.5 mmol/L (3.5-5.1); Sodium 137 mmol/L (135-145); Total Bilirubin 0.9 mg/dl (0.2-1.3); Total Cholesterol 252 mg/dl (50-199); Triglyceride 209 mg/dl (10-149); Very Low Density Lipoprotein 41 mg/dl (0-30); eGFR > 60.00
[2024-07-06 15:50] LABS: % Basophils 2.1 % (0-2); % Eosinophils 7.2 % (0-6); % Immature Granulocytes 0.1 % (0-0.5); % Lymphocytes 31.5 % (20.5-51.1); % Monocytes 8.8 % (1.7-9.3); % Neutrophils 50.3 % (42.2-75.2); Absolute Basophils 0.1 10^3/uL (0-0.2); Absolute Eosinophils 0.5 10^3/uL (0-0.7); Absolute Lymphocytes 2.1 10^3/uL (1.2-3.4); Absolute Monocytes 0.6 10^3/uL (0.1-0.6); Absolute Neutrophils 3.4 10^3/uL (1.4-6.5); Hematocrit 41.8 % (37.0-47.0); Hemoglobin 13.8 g/dL (12.0-16.0); Mean Corpuscular Hgb 26.4 pg (27.0-31.0); Mean Corpuscular Volume 79.9 fL (81.0-99.0); Mean Platelet Volume 10.8 fL (7.4-10.4); Nucleated Red Blood Cells % 0 %; Platelet Count 289 10^3/uL (130-400); Red Blood Cell Count 5.23 10^6/uL (4.20-5.40); Red Cell Dist. Width 15.4 % (11.5-14.5); White Blood Cell Count 6.8 10^3/uL (4.8-10.8)
[2024-07-06 16:12] LABS: TSH 1.91 uIU/ml (0.47-4.68)
== END ==
LOC: HWLAB 10:43
PROVIDERS: ATTENDING PHYSICIAN Internal Medicine Cardiovascular Disease; FAMILY PHYSICIAN Internal Medicine
DX: E03.9 Hypothyroidism, unspecified (principal); I10 Essential (primary) hypertension; M35.3 Polymyalgia rheumatica; I35.0 Nonrheumatic aortic (valve) stenosis; I51.7 Cardiomegaly; K21.9 Gastro-esophageal reflux disease without esophagitis; Z86.2 Personal history of diseases of the blood and blood-forming organs and certain disorders involving the immune mechanism; E78.00 Pure hypercholesterolemia, unspecified
CPT/HCPCS: 36415; 80053; 80061; 84443; 85025

== ENCOUNTER → 2024-07-14 10:10 | Outpatient (REF) | payer MEDICARE, OTHER, SELFPAY ==
[2024-07-14 13:07] LABS: Glycohemoglobin (HgbA1c) 5.7 % (4.0-5.6)
== END ==
LOC: HWLAB 10:10
PROVIDERS: ATTENDING PHYSICIAN Ophthalmology; FAMILY PHYSICIAN Internal Medicine
DX: R73.09 Other abnormal glucose (principal)
CPT/HCPCS: 36415; 83036

== ENCOUNTER → 2024-07-27 13:28 | Outpatient (REF) | payer MEDICARE, OTHER, SELFPAY | LOC: HWWDC 13:28 | PROVIDERS: ATTENDING PHYSICIAN Internal Medicine | DX: Z12.31 Encounter for screening mammogram for malignant neoplasm of breast (principal) | CPT/HCPCS: 77063; 77067 ==

== ENCOUNTER → 2024-07-28 12:55 | Outpatient (REF) | payer MEDICARE, OTHER, SELFPAY | LOC: HWRCS 12:55 | PROVIDERS: ATTENDING PHYSICIAN Internal Medicine Cardiovascular Disease; FAMILY PHYSICIAN Internal Medicine | DX: I35.0 Nonrheumatic aortic (valve) stenosis (principal) | CPT/HCPCS: 93306 ==